=== PATIENT | male | born 1945 | race Caucasian/White ===

== ENCOUNTER 2017-08-11 11:26 | Observation (INO) | payer OTHER, MEDICARE ==
--- NOTE | 2017-08-11 11:38 | PDOC ---
History of Present Illness <Shadi Iglesias - Last Filed: 08/11/17 13:27> - General History Source: Patient Exam Limitations: No Limitations - History of Present Illness Initial Comments: 08/11/17 11:45 The patient is a 72 year old male, with a significant past medical history of DM , CVA right side weakness,CABG, anxiety, and depression who presents to the emergency department with dizziness, aphasia, not oriented to time, and low blood sugar. The patient also arrives with chief complains of LE weakness and pain. The patient upon examination exhibits difficulty talking and completing full sentences when talking to ER staff. He denies any recent fevers, chills, or headache. He denies any recent nausea, vomit, diarrhea or constipation. He denies any recent chest pain or shortness of breath. He denies any recent dysuria, frequency, urgency or hematuria. Allergies: NKA <Landon Saleh - Last Filed: 08/11/17 13:31> - General Stated Complaint: DIZZY Time Seen by Provider: 08/11/17 11:38 NIH Stroke Scale - Last Known Well Date/Time & Onset Date Last Known Well: 08/10/17 (Lives Alone, Cant tell me when he was last his normal self) Time Last Known Well: 22:00 (Has residual right sided deficit) - Initial Evaluation Level of consciousness: Alert Ask patient the month and their age: Answers both correctly Ask patient to open & close eyes; make fist and let go: Obeys both correctly Best gaze (horizontal eye movement): Normal Visual field testing: No visual field loss Facial paresis (Show teeth/raise eyebrows/close eyes tight): Normal symmetrical movement Motor Function: Left Arm: Normal Motor Function: Right Arm: Normal (extends arm 90 (or 45) degrees for 10 seconds without drift Motor Function: Left Leg: Normal (extends leg 30 degrees for 5 seconds without drift) Motor Function: Right Leg: Normal (extends leg 30 degrees for 5 seconds without drift) Limb Ataxia: No ataxia Sensory(Use pinprick test arms,legs,trunk,face/side to side): Normal Best language (Describe picture, name items, read sentences): Mild to moderate aphasia Dysarthria (read several words): Normal articulation Extinction and Inattention: No abnormality - Total Score NIH Stroke Scale Score: 1 <Shadi Iglesias - Last Filed: 08/11/17 13:27> Past History - Past Medical History Cancer: Yes (Prostate seed implants) Cardiac Disorders: Yes (CABG) CVA: Yes (2 years ago with rt sided weakness) Diabetes: Yes Psychiatric Problems: Yes (depresion, anxiety) - Surgical History Cardiac Surgery: Yes (bypass) - Suicide/Smoking/Psychosocial Hx Smoking History: Never smoked Have you smoked in the past 12 months: No Hx Alcohol Use: Yes (Quit) Drug/Substance Use Hx: No Substance Use Type: Alcohol Hx Substance Use Treatment: No <Shadi Iglesias - Last Filed: 08/11/17 13:27> <Landon Saleh - Last Filed: 08/11/17 13:31> - Past Medical History Allergies/Adverse Reactions: Allergies Allergy/AdvReac Type Severity Reaction Status Date / Time No Known Allergies Allergy Verified 08/11/17 13:25 Home Medications: Ambulatory Orders Aspirin [ASA -] 325 mg PO DAILY 10/17/13 Baclofen 10 mg PO BID 10/17/13 Bupropion HCl [Wellbutrin -] 150 mg PO BID 10/17/13 Insulin Glargine,Hum.rec.anlog [Lantus (10mL VIAL) -] 16 units SQ HS 10/17/13 Metformin HCl [Glucophage -] 500 mg PO BID 10/17/13 Simvastatin [Zocor -] 40 mg PO HS 10/17/13 Docusate Sodium [Colace -] 100 mg PO DAILY PRN #30 capsule 10/27/13 Review of Systems - Review of Systems Comments:: 08/11/17 11:45 GENERAL/CONSTITUTIONAL: No fever or chills. No weakness. +low blood sugar. HEAD, EYES, EARS, NOSE AND THROAT: No change in vision. No ear pain or discharge. No sore throat. CARDIOVASCULAR: No chest pain or shortness of breath. RESPIRATORY: No cough, wheezing, or hemoptysis. GASTROINTESTINAL: No nausea, vomiting, diarrhea or constipation. GENITOURINARY: No dysuria, frequency, or change in urination. MUSCULOSKELETAL: No joint or muscle swelling or pain. No neck or back pain. SKIN: No rash NEUROLOGIC: +dizzziness. No headache, vertigo, loss of consciousness, or change in strength/sensation. ENDOCRINE: No increased thirst. No abnormal weight change. HEMATOLOGIC/LYMPHATIC: No anemia, easy bleeding, or history of blood clots. ALLERGIC/IMMUNOLOGIC: No hives or skin allergy. <Landon Saleh - Last Filed: 08/11/17 13:31> *Physical Exam - Physical Exam Comments: 08/11/17 11:45 GENERAL: Awake, alert, and fully oriented, in no acute distress HEAD: No signs of trauma EYES: PERRLA, EOMI, sclera anicteric, conjunctiva clear ENT: Auricles normal inspection, hearing grossly normal, nares patent, oropharynx clear without exudates. Moist mucosa NECK: Normal ROM, supple, no lymphadenopathy, JVD, or masses LUNGS: Breath sounds equal, clear to auscultation bilaterally. No wheezes, and no crackles HEART: Regular rate and rhythm, normal S1 and S2, no murmurs, rubs or gallops ABDOMEN: Soft, nontender, normoactive bowel sounds. No guarding, no rebound. No masses EXTREMITIES: Normal range of motion, no edema. No clubbing or cyanosis. No cords, erythema, or tenderness. Scratches on both LEs but no cellulites. NEUROLOGICAL: Cranial nerves II through XII grossly intact. Difficulty answering questions with some aphasia. No difficulty understanding conversation. Right side clumsy. SKIN: Warm, Dry, normal turgor, no rashes or lesions noted. <Landon Saleh - Last Filed: 08/11/17 13:31> Heart Score/ECG Review - ECG Impressions Comment:: 08/11/17 13:21 EKG impressions reported by : Normal sinus rhythm at 63 bpm. <Landon Saleh - Last Filed: 08/11/17 13:31> ED Treatment Course - LABORATORY CBC & Chemistry Diagram: 08/11/17 11:55 08/11/17 11:55 <Shadi Iglesias - Last Filed: 08/11/17 13:27> - LABORATORY CBC & Chemistry Diagram: 08/11/17 11:55 08/11/17 11:55 <Landon Saleh - Last Filed: 08/11/17 13:31> Medical Decision Making - Medical Decision Making 08/11/17 13:08 Patient still does not feel well. His friend says that he does have some right sided weakness and apahasia all the time from his previous stroke. He has no regular doctor as [facility]. In light of CT Scan interpretation I think he should probably come in as obs for MRI and continued supportive care. <Shadi Igleisas - Last Filed: 08/11/17 13:27> - Medical Decision Making 08/11/17 12:02 Patient given half amp of glucose and appears to have returned to baseline. <Landon Saleh - Last Filed: 08/11/17 13:31> *DC/Admit/Observation/Transfer - Discharge Dispostion Admit: Yes - Attestations Physician Attestion: 08/11/17 11:38 I, Dr. Shadi Iglesias, attest that this document has been prepared under my direction and personally reviewed by me in its entirety. I further attest, that it accurately reflects all work, treatment, procedures and medical decision -making performed by me. <Shadi Iglesias - Last Filed: 08/11/17 13:27> - Attestations Scribe Attestion: 08/11/17 11:45 Documentation prepared by Landon Saleh, acting as medical office clerk for Shadi Iglesias MD/. <Landon Saleh - Last Filed: 08/11/17 13:31> Diagnosis at time of Disposition: Hypoglycemia, Encephalomalacia Altered mental status Qualifiers: Altered mental status type: transient alteration of awareness Qualified Code(s) : R40.4 - Transient alteration of awareness - Discharge Dispostion Condition at time of disposition: Improved
[2017-08-11] MEDS ORDERED: DEXTROSE 50%-WATER - 25 GM/50 ML VIAL IVPUSH ONE (11:45)
[2017-08-11] MEDS ORDERED: DEXTROSE 50%-WATER 25 GM/50 ML DISP.SYRIN ONE (11:48)
[2017-08-11 12:08] LABS: BASOPHIL 0.8 % (0-2.0); EOSINOPHIL 3.8 % (0-4.5); MCH 31.6 pg (25.7-33.7); MCHC 33.9 g/dl (32.0-35.9); MEAN CELL VOLUME 93.2 fl (80-96); NEUTROPHILS 56.9 % (42.8-82.8); PLATELET COUNT 189 K/MM3 (134-434); RDW 13.6 % (11.9-15.9); WHITE BLOOD COUNT 6.3 K/mm3 (4.0-10.0)
[2017-08-11 12:22] LABS: INR 0.93 (0.82-1.09); PROTHROMBIN TIME (PATIENT) 10.5 SEC (9.98-11.88)
[2017-08-11 12:36] LABS: ALBUMIN 4.2 g/dl (3.4-5.0); ANION GAP 9 (8-16); BILIRUBIN,TOTAL 0.4 mg/dL (0.2-1.0); CALCIUM 10.4 mg/dL (8.5-10.1); CO2 27 mmol/L (21-32); CPK 74 IU/L (39-308); CREATININE 1.5 mg/dL (0.7-1.3); GLUCOSE,RANDOM 94 mg/dL (74-106); SGOT/AST 10 U/L (15-37); SGPT/ALT 35 U/L (12-78); TOT PROT 7.2 g/dl (6.4-8.2)
[2017-08-11 12:38] LABS: ALK PHOS 62 U/L (45-117); TROPONIN I < 0.02 ng/ml (0.00-0.05)
[2017-08-11 12:51] LABS: URINE APPEARANCE CLEAR; URINE BILIRUBIN NEGATIVE (NEGATIVE); URINE BLOOD NEGATIVE (NEGATIVE); URINE COLOR YELLOW; URINE GLUCOSE (UA) 1+ (NEGATIVE); URINE KETONE TRACE (NEGATIVE); URINE NITRITE NEGATIVE (NEGATIVE); URINE PROTEIN NEGATIVE (NEGATIVE); URINE UROBILINOGEN NEGATIVE mg/dL (0.2-1.0)
[2017-08-11 14:19] LABS: ACETONE SERUM NEGATIVE (NEGATIVE)
[2017-08-11] MEDS ORDERED: DOCUSATE SODIUM 100 MG CAPSULE (FP) PO PRN (15:19)
[2017-08-11 15:31] VITALS: BMI 25.8
--- NOTE | 2017-08-11 15:40 | HP ---
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 Patient presented to the ED with a report of dizziness, disorientation, and low blood sugar. Because of patient's expressive aphasia, it is difficult to obtain a history. Spoke with patient's HCP Rimma Sumner ([phone]). It appears patient was observed to be disoriented. His fingerstick was in the 70s which is low for him. The HCP recommended patient come to the hospital. The HCP confirmed that patient's expressive aphasia is at baseline, but when she spoke with the patient earlier today he was disoriented and that was new for him. ER course was notable for: (1) Initial FS 79 (2) D50 12.5gm x 1 Recent Travel: No PAST MEDICAL HISTORY: CVA Prostate cancer Anxiety/depression PAST SURGICAL HISTORY: CABG Social History: Smoking: no Alcohol: no Drugs: no Family History: Allergies No Known Allergies Allergy (Verified 08/11/17 13:25) EGGPLANT ALLERGY HOME MEDICATIONS: Home Medications Medication Instructions Recorded Aspirin [ASA -] 325 mg PO DAILY 10/17/13 Baclofen 10 mg PO BID 10/17/13 Bupropion HCl [Wellbutrin -] 150 mg PO BID 10/17/13 Insulin Glargine,Hum.rec.anlog 16 units SQ HS 10/17/13 [Lantus (10mL VIAL) -] Metformin HCl [Glucophage -] 500 mg PO BID 10/17/13 Simvastatin [Zocor -] 40 mg PO HS 10/17/13 Docusate Sodium [Colace -] 100 mg PO DAILY PRN #30 capsule 10/27/13 REVIEW OF SYSTEMS CONSTITUTIONAL: Absent: fever, chills, diaphoresis, generalized weakness, malaise, loss of appetite, weight change HEENT: Absent: rhinorrhea, nasal congestion, throat pain, throat swelling, difficulty swallowing, mouth swelling, ear pain, eye pain, visual changes CARDIOVASCULAR: Absent: chest pain, syncope, palpitations, irregular heart rate, lightheadedness , peripheral edema RESPIRATORY: Absent: cough, shortness of breath, dyspnea with exertion, orthopnea, wheezing, stridor, hemoptysis GASTROINTESTINAL: Absent: abdominal pain, abdominal distension, nausea, vomiting, diarrhea, constipation, melena, hematochezia GENITOURINARY: Absent: dysuria, frequency, urgency, hesitancy, hematuria, flank pain, genital pain MUSCULOSKELETAL: Absent: myalgia, arthralgia, joint swelling, back pain, neck pain SKIN: Absent: rash, itching, pallor HEMATOLOGIC/IMMUNOLOGIC: Absent: easy bleeding, easy bruising, lymphadenopathy, frequent infections ENDOCRINE: Present: low blood sugar, dizziness, disorientation Absent: unexplained weight gain, unexplained weight loss, heat intolerance, cold intolerance NEUROLOGIC: Absent: headache, focal weakness or paresthesias, dizziness, unsteady gait, seizure, mental status changes, bladder or bowel incontinence PSYCHIATRIC: Absent: anxiety, depression, suicidal or homicidal ideation, hallucinations. PHYSICAL EXAMINATION Vital Signs - 24 hr 08/11/17 08/11/17 08/11/17 12:01 14:50 15:24 Temperature 97.5 F L Pulse Rate 72 71 Pulse Rate [ 71 Radial] Respiratory 24 20 18 Rate Blood Pressure 130/84 126/67 Blood Pressure 132/76 [Left Arm] O2 Sat by Pulse 100 99 99 Oximetry (%) GENERAL: Awake, alert, and fully oriented, in no acute distress. HEAD: Normal with no signs of trauma. EYES: Pupils equal, round and reactive to light, extraocular movements intact, sclera anicteric, conjunctiva clear. No lid lag. EARS, NOSE, THROAT: Ears normal, nares patent, oropharynx clear without exudates. Moist mucous membranes. NECK: Normal range of motion, supple without lymphadenopathy, JVD, or masses. LUNGS: Breath sounds equal, clear to auscultation bilaterally. No wheezes, and no crackles. No accessory muscle use. HEART: Regular rate and rhythm, normal S1 and S2 without murmur, rub or gallop. ABDOMEN: Soft, nontender, not distended, normoactive bowel sounds, no guarding, no rebound, no masses. MUSCULOSKELETAL: Normal range of motion at all joints. No bony deformities or tenderness. No CVA tenderness. UPPER EXTREMITIES: 2+ pulses, warm, well-perfused. No cyanosis. No clubbing. No peripheral edema. LOWER EXTREMITIES: 2+ pulses, warm, well-perfused. No calf tenderness. No peripheral edema. NEUROLOGICAL: weakness RUE and RLE; cranial nerves II-XII intact. Expressive aphasia. PSYCHIATRIC: Cooperative. Good eye contact. Appropriate mood and affect. SKIN: Warm, dry, normal turgor, no rashes or lesions noted, normal capillary refill. Laboratory Results - last 24 hr 08/11/17 08/11/17 08/11/17 11:55 11:55 11:55 WBC 6.3 D RBC 4.69 Hgb 14.8 D Hct 43.7 D MCV 93.2 MCH 31.6 MCHC 33.9 RDW 13.6 Plt Count 189 MPV 9.0 Neutrophils % 56.9 D Lymphocytes % 31.5 D Monocytes % 7.0 Eosinophils % 3.8 Basophils % 0.8 PT with INR 10.50 INR 0.93 D Sodium 140 Potassium 3.7 Chloride 104 Carbon Dioxide 27 Anion Gap 9 BUN 20 H Creatinine 1.5 H Creat Clearance w eGFR 45.87 Random Glucose 94 D Lactic Acid Calcium 10.4 H D Total Bilirubin 0.4 AST 10 L D ALT 35 D Alkaline Phosphatase 62 D Creatine Kinase 74 Troponin I < 0.02 B-Natriuretic Peptide 339.48 H Total Protein 7.2 Albumin 4.2 D Urine Color Urine Appearance Urine pH Ur Specific [place] Urine Protein Urine Glucose (UA) Urine Ketones Urine Blood Urine Nitrite Urine Bilirubin Urine Urobilinogen Acetone, Qual Negative 08/11/17 08/11/17 11:55 12:42 WBC RBC Hgb Hct MCV MCH MCHC RDW Plt Count MPV Neutrophils % Lymphocytes % Monocytes % Eosinophils % Basophils % PT with INR INR Sodium Potassium Chloride Carbon Dioxide Anion Gap BUN Creatinine Creat Clearance w eGFR Random Glucose Lactic Acid 1.5 Calcium Total Bilirubin AST ALT Alkaline Phosphatase Creatine Kinase Troponin I B-Natriuretic Peptide Total Protein Albumin Urine Color Yellow Urine Appearance Clear Urine pH 7.0 D Ur Specific [place] 1.015 Urine Protein Negative Urine Glucose (UA) 1+ H Urine Ketones Trace H Urine Blood Negative Urine Nitrite Negative Urine Bilirubin Negative Urine Urobilinogen Negative Acetone, Qual ASSESSMENT/PLAN: 72 year-old male with a PMH significant for 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 Placed on observation for hypoglycemic episode. Hypoglycemia, resolved IDDM --Novolog sliding scale coverage h/o CVA --08/11 CT head: increased area of encehalomalacia left posterior frontal/ parietal junction; cannot r/o superimposed acute/subacute extension of infarct; needs MRI CAD s/p CABG --hold ASA --continue atorvastatin Prostate cancer s/p brachytherapy --no acute issues Anxiety/depression --continue bupropion DVT prophylaxis: hold chemical prophylaxis for now; SCDs, oob, ambulation Visit type - Emergency Visit Emergency Visit: Yes ED Registration Date: 08/11/17 Care time: The patient presented to the Emergency Department on the above date and was hospitalized for further evaluation of their emergent condition. - New Patient This patient is new to me today: Yes Date on this admission: 08/12/17 - Critical Care Critical Care patient: No
[2017-08-11] MEDS: INSULIN SLIDING SCALE (NOVOLOG) 1 VIAL SQ SCH ×2 (16:36→22:13)
[2017-08-11 21:17] LABS: URINE LEUK ESTERASE Negative (NEGATIVE)
[2017-08-11] MEDS ORDERED: ATORVASTATIN CA 20 MG TABLET (FP) PO SCH (22:00)
[2017-08-11] MEDS: BACLOFEN 10 MG TABLET (FP) PO SCH (22:04)
[2017-08-11] MEDS: buPROPion HCL 75 MG TABLET PO SCH (22:04)
[2017-08-11] MEDS ORDERED: INSULIN (NOVOLOG) ASPART 100 UNITS/ML 10ML VIAL ONE (22:12)
[2017-08-12] MEDS: INSULIN SLIDING SCALE (NOVOLOG) 1 VIAL SQ SCH ×3 (06:17→15:58)
[2017-08-12 06:44] LABS: BASOPHIL 0.4 % (0-2.0); EOSINOPHIL 2.7 % (0-4.5); MCH 32.7 pg (25.7-33.7); MEAN CELL VOLUME 93.4 fl (80-96); MEAN PLT VOLUME 9.3 fl (7.5-11.1); NEUTROPHILS 62.9 % (42.8-82.8); PLATELET COUNT 155 K/MM3 (134-434); RDW 13.2 % (11.9-15.9); WHITE BLOOD COUNT 6.2 K/mm3 (4.0-10.0)
[2017-08-12 07:05] LABS: ALBUMIN 3.2 g/dl (3.4-5.0); ANION GAP 7 (8-16); BILIRUBIN,TOTAL 0.8 mg/dL (0.2-1.0); CALCIUM 8.7 mg/dL (8.5-10.1); CO2 27 mmol/L (21-32); CREATININE 1.3 mg/dL (0.7-1.3); GLUCOSE,RANDOM 113 mg/dL (74-106); MAGNESIUM 1.7 mg/dL (1.8-2.4); PHOSPHOROUS 3.1 mg/dL (2.5-4.9); SGOT/AST 6 U/L (15-37); SGPT/ALT 25 U/L (12-78)
[2017-08-12 07:06] LABS: ALK PHOS 47 U/L (45-117); TOT PROT 5.8 g/dl (6.4-8.2)
[2017-08-12] MEDS ORDERED: MAGNESIUM OXIDE 400 MG TABLET (FP) PO ONE (09:54)
--- NOTE | 2017-08-12 09:57 | PN ---
Physical Exam: SUBJECTIVE: Patient seen and examined OBJECTIVE: Vital Signs Period Temp Pulse Resp BP Sys/Lucas Pulse Ox Last 24 Hr 97.5 F-99.2 F 64-72 18-24 111-132/61-84 98-100 GENERAL: The patient is awake, alert, and fully oriented, in no acute distress. HEAD: Normal with no signs of trauma. EYES: PERRL, extraocular movements intact, sclera anicteric, conjunctiva clear. No ptosis. ENT: Ears normal, nares patent, oropharynx clear without exudates, moist mucous membranes. NECK: Trachea midline, full range of motion, supple. LUNGS: Breath sounds equal, clear to auscultation bilaterally, no wheezes, no crackles, no accessory muscle use. HEART: Regular rate and rhythm, S1, S2 without murmur, rub or gallop. ABDOMEN: Soft, nontender, nondistended, normoactive bowel sounds, no guarding, no rebound, no hepatosplenomegaly, no masses. EXTREMITIES: 2+ pulses, warm, well-perfused, no edema. NEUROLOGICAL: Cranial nerves II through XII grossly intact. Normal speech, gait not observed. PSYCH: Normal mood, normal affect. SKIN: Warm, dry, normal turgor, no rashes or lesions noted Laboratory Results - last 24 hr 08/11/17 08/11/17 08/11/17 11:33 11:55 11:55 WBC 6.3 D RBC 4.69 Hgb 14.8 D Hct 43.7 D MCV 93.2 MCH 31.6 MCHC 33.9 RDW 13.6 Plt Count 189 MPV 9.0 Neutrophils % 56.9 D Lymphocytes % 31.5 D Monocytes % 7.0 Eosinophils % 3.8 Basophils % 0.8 PT with INR 10.50 INR 0.93 D Sodium Potassium Chloride Carbon Dioxide Anion Gap BUN Creatinine Creat Clearance w eGFR POC Glucometer 79.31696 Random Glucose Lactic Acid Calcium Phosphorus Magnesium Total Bilirubin AST ALT Alkaline Phosphatase Creatine Kinase Troponin I B-Natriuretic Peptide Total Protein Albumin Urine Color Urine Appearance Urine pH Ur Specific [place] Urine Protein Urine Glucose (UA) Urine Ketones Urine Blood Urine Nitrite Urine Bilirubin Urine Urobilinogen Ur Leukocyte Esterase Acetone, Qual 08/11/17 08/11/17 08/11/17 11:55 11:55 12:41 WBC RBC Hgb Hct MCV MCH MCHC RDW Plt Count MPV Neutrophils % Lymphocytes % Monocytes % Eosinophils % Basophils % PT with INR INR Sodium 140 Potassium 3.7 Chloride 104 Carbon Dioxide 27 Anion Gap 9 BUN 20 H Creatinine 1.5 H Creat Clearance w eGFR 45.87 POC Glucometer [phone] Random Glucose 94 D Lactic Acid 1.5 Calcium 10.4 H D Phosphorus Magnesium Total Bilirubin 0.4 AST 10 L D ALT 35 D Alkaline Phosphatase 62 D Creatine Kinase 74 Troponin I < 0.02 B-Natriuretic Peptide 339.48 H Total Protein 7.2 Albumin 4.2 D Urine Color Urine Appearance Urine pH Ur Specific [place] Urine Protein Urine Glucose (UA) Urine Ketones Urine Blood Urine Nitrite Urine Bilirubin Urine Urobilinogen Ur Leukocyte Esterase Acetone, Qual Negative 08/11/17 08/11/17 08/12/17 12:42 22:03 05:15 WBC RBC Hgb Hct MCV MCH MCHC RDW Plt Count MPV Neutrophils % Lymphocytes % Monocytes % Eosinophils % Basophils % PT with INR INR Sodium Potassium Chloride Carbon Dioxide Anion Gap BUN Creatinine Creat Clearance w eGFR POC Glucometer 162 120 Random Glucose Lactic Acid Calcium Phosphorus Magnesium Total Bilirubin AST ALT Alkaline Phosphatase Creatine Kinase Troponin I B-Natriuretic Peptide Total Protein Albumin Urine Color Yellow Urine Appearance Clear Urine pH 7.0 D Ur Specific [place] 1.015 Urine Protein Negative Urine Glucose (UA) 1+ H Urine Ketones Trace H Urine Blood Negative Urine Nitrite Negative Urine Bilirubin Negative Urine Urobilinogen Negative Ur Leukocyte Esterase Negative Acetone, Qual 08/12/17 08/12/17 06:20 06:20 WBC 6.2 RBC 4.06 Hgb 13.2 D Hct 37.9 MCV 93.4 MCH 32.7 MCHC 35.0 RDW 13.2 Plt Count 155 MPV 9.3 Neutrophils % 62.9 Lymphocytes % 24.8 D Monocytes % 9.2 Eosinophils % 2.7 Basophils % 0.4 PT with INR INR Sodium 141 Potassium 3.7 Chloride 107 Carbon Dioxide 27 Anion Gap 7 L BUN 17 Creatinine 1.3 Creat Clearance w eGFR 54.11 POC Glucometer Random Glucose 113 H D Lactic Acid Calcium 8.7 Phosphorus 3.1 D Magnesium 1.7 L Total Bilirubin 0.8 D AST 6 L D ALT 25 D Alkaline Phosphatase 47 D Creatine Kinase Troponin I B-Natriuretic Peptide Total Protein 5.8 L Albumin 3.2 L D Urine Color Urine Appearance Urine pH Ur Specific [place] Urine Protein Urine Glucose (UA) Urine Ketones Urine Blood Urine Nitrite Urine Bilirubin Urine Urobilinogen Ur Leukocyte Esterase Acetone, Qual Active Medications Generic Name Dose Route Start Last Admin Trade Name Brent PRN Reason Stop Dose Admin Atorvastatin Calcium 20 mg 08/11/17 22:00 08/11/17 22:04 Lipitor - PO 20 mg HS VAZQUEZ Administration Baclofen 10 mg 08/11/17 22:00 08/11/17 22:04 Lioresal - PO 10 mg BID VAZQUEZ Administration Bupropion HCl 150 mg 08/11/17 22:00 08/11/17 22:04 Wellbutrin - PO 150 mg BID VAZQUEZ Administration Docusate Sodium 100 mg 08/11/17 15:19 Colace - PO DAILY PRN CONSTIPATION Insulin Aspart 1 vial 08/11/17 16:30 08/12/17 06:17 Novolog Vial Sliding Scale - SQ Not Given ACHS [facility] Protocol ASSESSMENT/PLAN 72 year-old male with a PMH significant for 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 Placed on observation for hypoglycemic episode. Hypoglycemia, resolved IDDM --Novolog sliding scale coverage h/o CVA --08/11 CT head: increased area of encehalomalacia left posterior frontal/ parietal junction; cannot r/o superimposed acute/subacute extension of infarct --repeat CT pending --MRI pending CAD s/p CABG --hold ASA --continue atorvastatin Prostate cancer s/p brachytherapy --no acute issues Anxiety/depression --continue bupropion FEN Fluids: PO intake adequate Electrolytes: replete as indicated Nutrition: diabetic diet DVT prophylaxis: hold chemical prophylaxis for now; SCDs, oob, ambulation
[2017-08-12] MEDS: BACLOFEN 10 MG TABLET (FP) PO SCH (09:59)
[2017-08-12] MEDS: buPROPion HCL 75 MG TABLET PO SCH (09:59)
[2017-08-12] MEDS ORDERED: ASPIRIN 325 MG TABLET PO SCH (10:00)
--- NOTE | 2017-08-12 13:16 | DS ---
Physical Exam: SUBJECTIVE: Patient seen and examined at bedside. Voices no complaints. OBJECTIVE: Vital Signs Period Temp Pulse Resp BP Sys/Lucas Pulse Ox Last 24 Hr 99.2 F-99.2 F 64-71 18-20 111-132/61-76 98-99 PHYSICAL EXAM GENERAL: The patient is awake, alert, and fully oriented, in no acute distress. LUNGS: Breath sounds equal, clear to auscultation bilaterally, no wheezes, no crackles, no accessory muscle use. HEART: Regular rate and rhythm, S1, S2 without murmur, rub or gallop. ABDOMEN: Soft, nontender, nondistended, normoactive bowel sounds, no guarding, no rebound EXTREMITIES: 2+ pulses, warm, well-perfused, no edema. NEUROLOGICAL:weakness RUE and RLE; cranial nerves II-XII intact. Expressive aphasia at baseline. PSYCH: Normal mood, normal affect. SKIN: numerous healed scratches and excoriations bilateral lower extremities LABS Laboratory Results - last 24 hr 08/11/17 08/11/17 08/11/17 11:33 11:55 12:41 WBC RBC Hgb Hct MCV MCH MCHC RDW Plt Count MPV Neutrophils % Lymphocytes % Monocytes % Eosinophils % Basophils % Sodium Potassium Chloride Carbon Dioxide Anion Gap BUN Creatinine Creat Clearance w eGFR POC Glucometer 79.33005 155.45214 Random Glucose Calcium Phosphorus Magnesium Total Bilirubin AST ALT Alkaline Phosphatase Total Protein Albumin Ur Leukocyte Esterase Acetone, Qual Negative 08/11/17 08/11/17 08/12/17 12:42 22:03 05:15 WBC RBC Hgb Hct MCV MCH MCHC RDW Plt Count MPV Neutrophils % Lymphocytes % Monocytes % Eosinophils % Basophils % Sodium Potassium Chloride Carbon Dioxide Anion Gap BUN Creatinine Creat Clearance w eGFR POC Glucometer 162 120 Random Glucose Calcium Phosphorus Magnesium Total Bilirubin AST ALT Alkaline Phosphatase Total Protein Albumin Ur Leukocyte Esterase Negative Acetone, Qual 08/12/17 08/12/17 08/12/17 06:20 06:20 11:30 WBC 6.2 RBC 4.06 Hgb 13.2 D Hct 37.9 MCV 93.4 MCH 32.7 MCHC 35.0 RDW 13.2 Plt Count 155 MPV 9.3 Neutrophils % 62.9 Lymphocytes % 24.8 D Monocytes % 9.2 Eosinophils % 2.7 Basophils % 0.4 Sodium 141 Potassium 3.7 Chloride 107 Carbon Dioxide 27 Anion Gap 7 L BUN 17 Creatinine 1.3 Creat Clearance w eGFR 54.11 POC Glucometer 172 Random Glucose 113 H D Calcium 8.7 Phosphorus 3.1 D Magnesium 1.7 L Total Bilirubin 0.8 D AST 6 L D ALT 25 D Alkaline Phosphatase 47 D Total Protein 5.8 L Albumin 3.2 L D Ur Leukocyte Esterase Acetone, Qual HOSPITAL COURSE: Date of Admission:08/11/17 Date of Discharge: 08/12/17 Pre hospital course 72 year-old male with a PMH significant for 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 Patient presented to the ED with a report of dizziness, disorientation, and low blood sugar. Because of patient's expressive aphasia, it is difficult to obtain a history. Spoke with patient's HCP Rimma Sumner ([phone]). It appears patient was observed to be disoriented. His fingerstick was in the 70s which is low for him. The HCP recommended patient come to the hospital. The HCP confirmed that patient's expressive aphasia is at baseline, but when she spoke with the patient earlier today he was disoriented and that was new for him. ER course was notable for (1) Initial FS 79 (2) D50 12.5gm x 1 Subsequent hospital course by assessment and plan Hypoglycemia, resolved IDDM --Novolog sliding scale coverage h/o CVA --08/11 CT head: increased area of encehalomalacia left posterior frontal/ parietal junction; cannot r/o superimposed acute/subacute extension of infarct; needs MRI --08/12 CT head repeat: a moderate to large area of encephalomalacia left frontoparietal lobe and to a lesser extent the adjacent temporal lobe. This area appears more prominent compared to CT study 10/18/13; wedge-shaped chronic infarct within the posterior inferior aspect of left cerebellar hemisphere medially, unchanged from 2014 study; no definite acute infarct is identified within the limitations of CT; correlation with MRI is suggested --08/12 MRI: CAD s/p CABG --hold ASA --continue atorvastatin Prostate cancer s/p brachytherapy --no acute issues Anxiety/depression --continue bupropion Discharge Summary Reason For Visit: ENCEPHALAMALACIA HYPOGLYCEMIA AMS Current Active Problems Altered mental status (Acute) Encephalomalacia (Acute) Hypoglycemia (Acute) Condition: Improved - Instructions Diet, Activity, Other Instructions: You were treated for an episode of hypoglycemia. Imaging of your head/brain was performed. A CD will be provided to you on discharge. It is recommended you followup with your PCP, Dr. Manuel Espinoza. Return to the emergency department for any new or worsening symptoms. Disposition: HOME - Home Medications Comprehensive Discharge Medication List: Ambulatory Orders Aspirin [ASA -] 325 mg PO DAILY 10/17/13 Baclofen 10 mg PO BID 10/17/13 Bupropion HCl [Wellbutrin -] 150 mg PO BID 10/17/13 Insulin Glargine,Hum.rec.anlog [Lantus (10mL VIAL) -] 16 units SQ HS 10/17/13 Metformin HCl [Glucophage -] 500 mg PO BID 10/17/13 Simvastatin [Zocor -] 40 mg PO HS 10/17/13 Docusate Sodium [Colace -] 100 mg PO DAILY PRN #30 capsule 10/27/13
--- NOTE | 2017-08-12 13:28 | EKG ---
Test Reason : Blood Pressure : / mmHG Vent. Rate : 063 BPM Atrial Rate : 063 BPM P-R Int : 162 ms QRS Dur : 084 ms QT Int : 388 ms P-R-T Axes : 058 -41 002 degrees QTc Int : 397 ms NORMAL SINUS RHYTHM LEFT AXIS DEVIATION NONSPECIFIC ST AND T WAVE ABNORMALITY ABNORMAL ECG WHEN COMPARED WITH ECG OF 17-OCT-2013 15:58, T WAVE VARIATION Confirmed by CHETAN DAS, JAMA ([id number]) on 08/12/2017 1:28:16 PM Referred By: Confirmed By:JAMA BENTON MD
[2017-08-12] MEDS ORDERED: diazePAM 5 MG TABLET PO ONE (16:30)
[2017-08-12 17:58] VITALS: BP 136/78; PULSE 81; TEMP 99.3
== END 2017-08-12 19:07 | disposition home or self-care (01) ==
LOC: JER 11:26 → JERBED 13:29 → J4W 15:36
PROVIDERS: ADMIT Internal Medicine; ATTEND Nurse Practitioner Acute Care
PROC: 3E033GC Introduction of Other Therapeutic Substance into Peripheral Vein, Percutaneous Approach (ICD-10-PCS; principal; 2017-08-12)
DX: E10.649 Type 1 diabetes mellitus with hypoglycemia without coma (principal); Z79.4 Long term (current) use of insulin; G93.89 Other specified disorders of brain; I69.851 Hemiplegia and hemiparesis following other cerebrovascular disease affecting right dominant side; I69.820 Aphasia following other cerebrovascular disease; Z85.46 Personal history of malignant neoplasm of prostate; I25.10 Atherosclerotic heart disease of native coronary artery without angina pectoris; Z95.1 Presence of aortocoronary bypass graft; F41.8 Other specified anxiety disorders
CPT/HCPCS: 36415; 70450-TC; 70551-TC; 71010-TC; 80053; 81003; 82009; 82550; 83605; 83735; 83880; 84100; 84484; 85025; 85610; 87040; 87086; 87186; 93005; 93010; 96374; 99285-25; G0378; J0475

== ENCOUNTER 2019-01-01 17:29 | Emergency (ER) | payer MEDICARE, OTHER ==
[2019-01-01 17:56] VITALS: BP 112/62; PULSE 89; TEMP 99.3; BMI 28.7
[2019-01-01 18:14] LABS: BASO % 0.6 % (0-2.0); HEMOGLOBIN 13.3 GM/dL (11.7-16.9); LYMPH % 12.4 % (8-40); MCH 33.2 pg (25.7-33.7); MCHC 34.1 g/dl (32.0-35.9); MEAN CELL VOLUME 97.3 fl (80-96); MEAN PLT VOLUME 8.8 fl (7.5-11.1); PLATELET COUNT 120 K/MM3 (134-434); RBC 4.01 M/mm3 (4.00-5.60); RDW 13.3 % (11.9-15.9); WHITE BLOOD COUNT 3.8 K/mm3 (4.0-10.0)
[2019-01-01 18:40] LABS: ALBUMIN 3.7 g/dl (3.4-5.0); ALK PHOS 45 U/L (45-117); ANION GAP 8 MMOL/L (8-16); BILIRUBIN,TOTAL 0.3 mg/dL (0.2-1); BLOOD UREA NITROGEN 27 mg/dL (7-18); CALCIUM 8.5 mg/dL (8.5-10.1); CHLORIDE 104 mmol/L (98-107); CO2 25 mmol/L (21-32); CREATININE 1.5 mg/dL (0.55-1.3); GLUCOSE,RANDOM 143 mg/dL (74-106); POTASSIUM 3.7 mmol/L (3.5-5.1); SGOT/AST 15 U/L (15-37); SGPT/ALT 29 U/L (13-61); SODIUM 137 mmol/L (136-145); TOT PROT 6.3 g/dl (6.4-8.2)
--- NOTE | 2019-01-01 19:41 | PDOC ---
History of Present Illness - General Chief Complaint: Nausea/Vomiting Stated Complaint: VOMITING Time Seen by Provider: 01/01/19 19:41 - History of Present Illness Initial Comments: 73 year old male with a PMH of CVA with expressive aphasia and mild right- sided weakness, CAD s/p CABG, prostate cancer s/p brachytherapy, anxiety and depression presenting with nausea, vomiting, NBNB diarrhea, and nasal congestion for the past two days. States that he is unable to keep his food down and was concerned because of this today. Denies any fevers, urinary symptoms, chills, cough, chest pain, headache, or other symptoms. 01/01/19 19:42 Past History - Past Medical History Allergies/Adverse Reactions: Allergies Allergy/AdvReac Type Severity Reaction Status Date / Time No Known Allergies Allergy Verified 01/01/19 17:52 Home Medications: Ambulatory Orders Aspirin [ASA -] 325 mg PO DAILY 10/17/13 Baclofen 10 mg PO BID 10/17/13 Bupropion HCl [Wellbutrin -] 150 mg PO BID 10/17/13 Insulin Glargine,Hum.rec.anlog [Lantus (10mL VIAL) -] 16 units SQ HS 10/17/13 Simvastatin [Zocor -] 40 mg PO HS 10/17/13 metFORMIN HCL [Glucophage -] 500 mg PO BID 10/17/13 Docusate Sodium [Colace -] 100 mg PO DAILY PRN #30 capsule 10/27/13 Cancer: Yes (Prostate seed implants) Cardiac Disorders: Yes (CABG) CVA: Yes (2 years ago with rt sided weakness) COPD: No Diabetes: Yes Psychiatric Problems: Yes (depresion, anxiety) - Surgical History Cardiac Surgery: Yes (bypass) - Suicide/Smoking/Psychosocial Hx Smoking History: Never smoked Have you smoked in the past 12 months: No Information on smoking cessation initiated: No Hx Alcohol Use: No Drug/Substance Use Hx: No Substance Use Type: Alcohol Hx Substance Use Treatment: No Review of Systems - Review of Systems Constitutional: No: Chills, Diaphoresis, Fever, Loss of Appetite HEENTM: No: Eye Pain, Blurred Vision, Tearing Respiratory: No: Cough, Orthopnea, Shortness of Breath Cardiac (ROS): No: Chest Pain, Edema, Irregular Heart Rate ABD/GI: Yes: Diarrhea, Nausea, Poor Appetite, Vomiting. No: Abdominal Distended Musculoskeletal: No: Joint Swelling, Muscle Weakness, Neck Pain, Joint Stiffness Integumentary: No: Flushing, Lesions, Lumps Neurological: Yes: Pre-Existing Deficit (right UE and LE ). No: Headache, Numbness, Paresthesia Psychiatric: No: Anxiety, Depression, Stressors Hematologic/Lymphatic: No: Anemia, Blood Clots, Easy Bleeding *Physical Exam - Vital Signs Last Vital Signs Temp Pulse Resp BP Pulse Ox 99.3 F 89 16 112/62 100 01/01/19 17:30 01/01/19 17:30 01/01/19 17:30 01/01/19 17:30 01/01/19 17:30 - Physical Exam General Appearance: Yes: Nourished, Appropriately Dressed, Apparent Distress HEENT: positive: EOMI, SREEDHAR, Normal ENT Inspection, Normal Voice Neck: positive: Trachea midline, Normal Thyroid, Supple. negative: Tender, Rigid Respiratory/Chest: positive: Lungs Clear, Normal Breath Sounds. negative: Chest Tender, Respiratory Distress Cardiovascular: positive: Regular Rhythm, Regular Rate Gastrointestinal/Abdominal: positive: Normal Bowel Sounds, Flat, Soft. negative : Tender Lymphatic: negative: Adenopathy, Tenderness Musculoskeletal: negative: Normal Inspection (able to linda rue and rle but with limited function compared to left.) Extremity: positive: Normal Capillary Refill. negative: Normal Inspection, Normal Range of Motion, Tender Integumentary: positive: Normal Color, Dry, Warm Neurologic: positive: Fully Oriented, Alert, Normal Mood/Affect, Normal Response , Other (Aphasia). negative: Motor Strength 5/5 (right 3/5 UE and LE) ED Treatment Course - LABORATORY CBC & Chemistry Diagram: 01/01/19 18:00 01/01/19 18:00 - ADDITIONAL ORDERS Additional order review: Laboratory Results 01/01/19 18:00 Sodium 137 Potassium 3.7 Chloride 104 Carbon Dioxide 25 Anion Gap 8 BUN 27 H Creatinine 1.5 H Creat Clearance w eGFR 45.75 Random Glucose 143 H Calcium 8.5 Total Bilirubin 0.3 AST 15 ALT 29 Alkaline Phosphatase 45 Total Protein 6.3 L Albumin 3.7 01/01/19 18:00 RBC 4.01 MCV 97.3 H MCHC 34.1 RDW 13.3 MPV 8.8 Neutrophils % 76.0 D Lymphocytes % 12.4 D Monocytes % 10.0 Eosinophils % 1.0 Basophils % 0.6 Medical Decision Making - Medical Decision Making 73 year old male with residual right sided deficits from stroke 7 years prior presenting with nasal congestion, nausea, vomiting, and diarrhea for the past two days. Last episode of vomit was yesterday night and he was able to tolerate food this AM but still presented for evaluation to be cautious given his comorbidities. Urine and labs WNL. EKG demonstrating rate 79, AL interval 176, QRS 84, QTc 444, and normal axis, aiwht Swaves in V3-V6 without any changes from EKG on 08/10/2017. Patient hydrated with 1L NS and tolerated a sandwich and juice without issue. Will DC with return precautions and follow up instructions. 01/01/19 21:11 *DC/Admit/Observation/Transfer Diagnosis at time of Disposition: Nausea vomiting and diarrhea - Discharge Dispostion Disposition: HOME Condition at time of disposition: Improved Decision to Admit order: No - Referrals Referrals: ON STAFF,NOT [Primary Care Provider] - - Patient Instructions Printed Discharge Instructions: DI for Nausea -- Adult Additional Instructions: Please drink water and try to eat foods that agree with your stomach. Please follow up with your primary care physician within one week. Please return to the ED if you have new or worsening symptoms. - Post Discharge Activity
[2019-01-01 19:44] LABS: INR 1.13 (0.83-1.09); PROTHROMBIN TIME (PATIENT) 13.4 SEC (9.7-13.0)
[2019-01-01] MEDS ORDERED: SODIUM CHLORIDE 0.9% 500 ML INFUS.BAG IV ONE (19:51)
[2019-01-01 20:28] LABS: AMYLASE 24 U/L (25-115); LIPASE 104 U/L (73-393)
--- NOTE | 2019-01-01 20:38 | PDOC ---
Documentation entered by Miri Lee SCRIBE, acting as scribe for Tony Robles MD. Tony Robles MD: This documentation has been prepared by the Rosa caro Adrianna, SCRIBE, under my direction and personally reviewed by me in its entirety. I confirm that the documentation accurately reflects all work, treatment, procedures, and medical decision making performed by me. Attending Attestation - Resident Resident Name: VipulLizwooalberto - ED Attending Attestation I have performed the following: I have examined & evaluated the patient, The case was reviewed & discussed with the resident, I agree w/resident's findings & plan, Exceptions are as noted - HPI HPI: The patient is a 73 year old male, with a significant PMH of DM, CVA with expressive aphasia and residual right-sided weakness, CAD (s/p CABG), anxiety, depression, and prostate CA (s/p brachytherapy) who presents to the emergency department today complaining of nausea, vomit, diarrhea, and nasal congestion for two days. Patient reports multiple episodes of NBNB vomit and diarrhea, with mild nasal congestion without cough. He notes he could not keep anything down today, prompting his visit to the ED. The patient denies chest pain, shortness of breath, headache and dizziness. Denies fever, chills, and constipation. Denies dysuria, frequency, urgency and hematuria. Denies any sick contacts. Allergies: NKA Past surgical history: Cardiac bypass, brachytherapy Social history: No reported PCP: Not On Staff 01/01/19 21:10 - Physicial Exam PE: 01/01/19 23:14 Agree with exam as documented by resident - Medical Decision Making 01/01/19 23:14 Consider viral illness? high risk pt, eval for atypical acs f/u labs, sypmtomatic tx re-eval Symptomatic improvement No emergent pathology DC with return instructions
[2019-01-01 21:16] LABS: URINE APPEARANCE CLEAR; URINE BILIRUBIN NEGATIVE (NEGATIVE); URINE COLOR YELLOW; URINE GLUCOSE (UA) NEGATIVE (NEGATIVE); URINE KETONE TRACE (NEGATIVE); URINE LEUK ESTERASE NEGATIVE (NEGATIVE); URINE NITRITE NEGATIVE (NEGATIVE); URINE PROTEIN TRACE (NEGATIVE); URINE UROBILINOGEN 0.2 mg/dL (0.2-1.0)
--- NOTE | 2019-01-02 11:23 | EKG ---
Test Reason : Blood Pressure : / mmHG Vent. Rate : 079 BPM Atrial Rate : 079 BPM P-R Int : 176 ms QRS Dur : 084 ms QT Int : 388 ms P-R-T Axes : 046 -48 030 degrees QTc Int : 444 ms NORMAL SINUS RHYTHM LEFT ANTERIOR FASCICULAR BLOCK MINIMAL VOLTAGE CRITERIA FOR LVH, MAY BE NORMAL VARIANT SEPTAL INFARCT , AGE UNDETERMINED ABNORMAL ECG Confirmed by NGUYEN HUDDLESTON MD ([id number]) on 01/02/2019 11:22:41 AM Referred By: Confirmed By:NGUYEN HUDDLESTON MD
== END 2019-01-02 01:00 | disposition home or self-care (01) ==
LOC: JER 17:29
DX: R11.2 Nausea with vomiting, unspecified (principal); I25.810 Atherosclerosis of coronary artery bypass graft(s) without angina pectoris; Z95.1 Presence of aortocoronary bypass graft; E11.9 Type 2 diabetes mellitus without complications; Z79.84 Long term (current) use of oral hypoglycemic drugs; I69.820 Aphasia following other cerebrovascular disease; I69.851 Hemiplegia and hemiparesis following other cerebrovascular disease affecting right dominant side; F32.9 Major depressive disorder, single episode, unspecified; F41.8 Other specified anxiety disorders; Z85.46 Personal history of malignant neoplasm of prostate
CPT/HCPCS: 36415; 80053; 81003; 82150; 83690; 85025; 85610; 87086; 87804; 93005; 93010; 99283-25